=== PATIENT | female | born 1985 | race Caucasian/White ===

== ENCOUNTER 2016-11-12 11:59 | Emergency (ER) | payer BC ==
[~2016-11-12] VITALS: Ht 172.7 cm; Wt 62.8 kg
[~2016-11-12 11:59] MED LIST: ADDE20 PO; AUGM875T PO
[2016-11-12 12:03] VITALS: BP 115/80; PULSE 113; RESP 16; TEMP 99; O2SAT 100
--- NOTE | 2016-11-12 12:39 | PD ---
HPI Chief Complaint: Abdominal Pain Time Seen by Provider: 12:34 Travel History International Travel<30 days: No Contact w/Intl Traveler<30days: No Traveled to known affect area: No History of Present Illness HPI Patient presents with acute abdominal pain in the right lower quadrant since last night. Pain is 8 out of 10. Described as dull and constant. Last menses [address] ago[address]UD [address]. Denies any vaginal discharge. Denies any changes in her urine or bowels. Denies any nausea or vomiting. Denies . Denies any blood per stool. No history of abdominal surgeries. PFSH Past Medical History Hx Anticoagulant Therapy: No ADD: Yes ADHD: Yes Diabetes: No Diminished Hearing: No Immunizations Current: Yes Migraines: Yes (SINUS MIGRAINE, HAD MEDICAL BOTOX MAY 2013) ?: Not : 2 Para: 2 Past Surgical History Gynecologic Surgery: Yes (IUD) Other Surgery: Yes (HERNIA REPAIR, bilateral breast augmentation x 2) Social History Alcohol Use: No Tobacco Use: No Substance Use: No Allergies-Medications (Allergen,Severity, Reaction): Coded Allergies: Shellfish (Verified Allergy, Severe, 11/12/16) PEANUTS (Verified Allergy, Intermediate, 11/12/16) Uncoded Allergies: fish (Allergy, Severe, swelling, 05/10/15) Reported Meds & Prescriptions Reported Meds & Active Scripts Active Reported Adderall (Amphetamine-Dextroamphetamine) 20 Mg Tab 20 Mg PO DAILY Avoid late evening doses. Space doses at least 4 to 6 hours if more than once/day dosing. Review of Systems General / Constitutional: No: Fever Eyes: No: Visual changes HENT: No: Headaches Cardiovascular: No: Chest Pain or Discomfort Respiratory: No: Shortness of Breath Gastrointestinal: Positive: Abdominal Pain Genitourinary: No: Dysuria Musculoskeletal: No: Pain Skin: No Rash Neurologic: No: Weakness Psychiatric: No: Depression Endocrine: No: Polydipsia Hematologic/Lymphatic: No: Easy Bruising Physical Exam Narrative GENERAL: Well-nourished, well-developed patient. SKIN: Focused skin assessment warm/dry. HEAD: Normocephalic. EYES: No scleral icterus. No injection or drainage. NECK: Supple, trachea midline. No JVD or lymphadenopathy. CARDIOVASCULAR: Regular rate and rhythm without murmurs, gallops, or rubs. RESPIRATORY: Breath sounds equal bilaterally. No accessory muscle use. GASTROINTESTINAL: Abdomen soft, tender right lower quadrant to palpation, no rebound tenderness, nondistended. MUSCULOSKELETAL: No cyanosis, or edema. BACK: Nontender without obvious deformity. No CVA tenderness. Data Data Last Documented VS Vital Signs Date Time Temp Pulse Resp B/P Pulse Ox O2 Delivery O2 Flow Rate FiO2 11/12/16 13:28 99 Room Air 11/12/16 12:03 99.0 113 16 115/80 Orders Complete Blood Count With Diff (11/12/16 12:34) Comprehensive Metabolic Panel (11/12/16 12:34) Lipase (11/12/16 12:34) Lactic Acid (11/12/16 12:34) Prothrombin Time / Inr (Pt) (11/12/16 12:34) Urinalysis - C+S If Indicated (11/12/16 12:34) Ct Abd/Pel W Iv Contrast(Rout) (11/12/16 12:34) Iv Access Insert/Monitor (11/12/16 12:34) Ecg Monitoring (11/12/16 12:34) Oximetry (11/12/16 12:34) Sodium Chloride 0.9% Flush (Ns Flush) (11/12/16 12:45) Dicyclomine Inj (Bentyl Inj) (11/12/16 12:45) Ed Urine Pregnancytest Poc (11/12/16 12:34) Iohexol 350 Inj (Omnipaque 350 Inj) (11/12/16 13:18) Labs Laboratory Tests Test 11/12/16 11/12/16 12:52 13:00 White Blood Count 12.3 TH/MM3 Red Blood Count 4.08 MIL/MM3 Hemoglobin 12.5 GM/DL Hematocrit 37.0 % Mean Corpuscular Volume 90.7 FL Mean Corpuscular Hemoglobin 30.6 PG Mean Corpuscular Hemoglobin 33.8 % Concent Red Cell Distribution Width 12.0 % Platelet Count 214 TH/MM3 Mean Platelet Volume 7.8 FL Neutrophils (%) (Auto) 84.8 % Lymphocytes (%) (Auto) 5.5 % Monocytes (%) (Auto) 6.4 % Eosinophils (%) (Auto) 0.2 % Basophils (%) (Auto) 3.1 % Neutrophils # (Auto) 10.4 TH/MM3 Lymphocytes # (Auto) 0.7 TH/MM3 Monocytes # (Auto) 0.8 TH/MM3 Eosinophils # (Auto) 0.0 TH/MM3 Basophils # (Auto) 0.4 TH/MM3 CBC Comment DIFF FINAL Differential Comment Prothrombin Time 11.7 SEC Prothromb Time International 1.1 RATIO Ratio Sodium Level 139 MEQ/L Potassium Level 4.9 MEQ/L Chloride Level 104 MEQ/L Carbon Dioxide Level 24.7 MEQ/L Anion Gap 10 MEQ/L Blood Urea Nitrogen 9 MG/DL Creatinine 0.86 MG/DL Estimat Glomerular Filtration 76 ML/MIN Rate Random Glucose 86 MG/DL Lactic Acid Level 0.8 mmol/L Calcium Level 8.7 MG/DL Total Bilirubin 0.3 MG/DL Aspartate Amino Transf 29 U/L (AST/SGOT) Alanine Aminotransferase 17 U/L (ALT/SGPT) Alkaline Phosphatase 70 U/L Total Protein 8.1 GM/DL Albumin 3.6 GM/DL Lipase 105 U/L Urine Collection Type CLEAN CATCH Urine Color YELLOW Urine Turbidity CLEAR Urine pH 5.5 Urine Specific [place] 1.028 Urine Protein TRACE mg/dL Urine Glucose (UA) NEG mg/dL Urine Ketones NEG mg/dL Urine Occult Blood SMALL Urine Nitrite NEG Urine Bilirubin NEG Urine Leukocyte Esterase NEG Urine RBC 20-24 /hpf Urine WBC 0-2 /hpf Urine Squamous Epithelial > 8 /hpf Cells Urine Bacteria FEW /hpf Microscopic Urinalysis Comment CULT NOT INDICATED Urine Collection Time 1300 MDM Medical Decision Making Medical Screen Exam Complete: Yes Emergency Medical Condition: Yes Differential Diagnosis Appendicitis, colitis, UTI, ovarian cyst, viral enteritis Narrative Course Assessment and plan discussed with patient at bedside. Last 72 hours Impressions Abdomen/Pelvis CT 11/12/16 1234 Signed Impressions: Service Date/Time: Saturday, November 12, 2016 13:07 - CONCLUSION: Essentially unremarkable study. Angela Salas MD Patient resting comfortably reports improvement in her pain. Differential discussed with patient Diagnosis Primary Impression: Abdominal pain Qualified Code: R10.31 - Right lower quadrant abdominal pain Patient Instructions: General Instructions Additional Instructions: Encouraged a bland BRAT diet. Rest fluids and Motrin. Follow-up with PCP symptoms do not improve. Med/Other Pt SpecificInfo: Prescription(s) given Scripts Hydrocodone-Acetaminophen 5-325 mg Tab1 Tab PO Q4H PRN (PAIN) #20 TAB Ref 0 Prov:Gage,Rui R. MD 11/12/16 Disposition: 01 DISCHARGE HOME Condition: Good Rui Almonte MD Nov 12, 2016 12:39
[2016-11-12] MEDS ORDERED: DICYCLOMINE HCL 20 MG/2 ML VIAL IM ONE (12:45)
[2016-11-12] MEDS ORDERED: SODIUM CHLORIDE 0.9% FLUSH 10 ML FLUSH IV FLUSH PRN (12:45)
[2016-11-12 13:01] LABS: AUTOMATED NEUTROPHIL # 10.4 TH/MM3 (1.8-7.7); BASOPHIL # 0.4 TH/MM3 (0-0.2); BASOPHIL % 3.1 % (0.0-2.0); EOSINOPHIL % 0.2 % (0.0-4.0); LYMPH % 5.5 % (9.0-44.0); LYMPHOCYTE # 0.7 TH/MM3 (1.0-4.8); MEAN CELL VOLUME 90.7 FL (80.0-100.0); MEAN CORPUSCULAR HEMOGLOBIN 30.6 PG (27.0-34.0); MEAN CORPUSCULAR HGB CONC 33.8 % (32.0-36.0); MONO % 6.4 % (0.0-8.0); NEUT % 84.8 % (16.0-70.0); PLATELET COUNT 214 TH/MM3 (150-450); RED BLOOD COUNT 4.08 MIL/MM3 (4.00-5.30); WHITE BLOOD COUNT 12.3 TH/MM3 (4.0-11.0)
[2016-11-12 13:06] LABS: HEMO FLAGS DIFF FINAL
[2016-11-12 13:07] LABS: BLOOD, URINE SMALL (NEG); GLUCOSE,URINE NEG (NEG); KETONE, URINE NEG (NEG); NITRITE,URINE NEG (NEG); PH, URINE 5.5 (5.0-8.5)
[2016-11-12 13:11] LABS: CHLORIDE 104 MEQ/L (98-107); SODIUM (NA) 139 MEQ/L (136-145)
[2016-11-12 13:12] LABS: METHOD OF COLLECTION CLEAN CATCH; URINE COLOR YELLOW (YELLW/STRAW)
[2016-11-12 13:13] LABS: INTERNATIONAL NORMALIZED RATIO 1.1 RATIO; PROTHROMBIN TIME - PATIENT 11.7 SEC (9.8-11.6)
[2016-11-12 13:15] LABS: ANION GAP 10 MEQ/L (5-15); BICARBONATE 24.7 MEQ/L (21.0-32.0); BLOOD UREA NITROGEN 9 MG/DL (7-18)
[2016-11-12 13:16] LABS: WBC, URINE 0-2 /hpf (0-5)
[2016-11-12 13:17] LABS: SQUAMOUS EPITHELIAL CELL URINE > 8 /hpf (0-5)
[2016-11-12 13:18] LABS: ALT (GPT) 17 U/L (10-53); AST (GOT) 29 U/L (15-37); GLOMERULAR FILTRATION RATE 76 ML/MIN (>89)
[2016-11-12 13:18] LABS: BACTERIA, URINE FEW /hpf; COMMENT (UR) CULT NOT INDICATED; CULTURE IF INDICATED CULT NOT INDICATED
[2016-11-12] MEDS ORDERED: IOHEXOL 350 MG/ML 10 ML VIAL (for RAD DIAG) IV ONE (13:18)
[2016-11-12 13:19] LABS: TOTAL BILIRUBIN ADULT 0.3 MG/DL (0.2-1.0)
[2016-11-12 13:21] LABS: ALKALINE PHOSPHATASE 70 U/L (45-117)
[2016-11-12 13:24] LABS: POTASSIUM 4.9 MEQ/L (3.5-5.1)
[2016-11-12 13:28] VITALS: O2SAT 99
--- NOTE | 2016-11-12 13:44 | RADHPO ---
EXAM DATE/TIME: 11/12/2016 13:07 [facility] COMPARISON: No previous studies available for comparison. INDICATIONS : Right lower quadrant pain since last night. IV CONTRAST: 90 cc Omnipaque 350 (iohexol) IV ORAL CONTRAST: No oral contrast ingested. RADIATION DOSE: 6.64 CTDIvol (mGy) MEDICAL HISTORY : None SURGICAL HISTORY : Hernia repair. ENCOUNTER: Initial ACUITY: 2 days PAIN SCALE: 8/10 LOCATION: Right lower quadrant TECHNIQUE: Volumetric scanning of the abdomen and pelvis was performed. Using automated exposure control and ad justment of the mA and/or kV according to patient size, radiation dose was kept as low as reasonably achievable to obtain optimal diagnostic quality images. FINDINGS: CT Abdomen: The liver, spleen, pancreas, kidneys, adrenals are unremarkable. There is no evidence for any appreciable pathological adenopathy, free fluid, or bowel obstruction. CT pelvis: There is no evidence for mass, abscess formation, or any significant adenopathy within the pelvis. The appendix is not clearly visualized, however no definite signs of appendicitis is seen. I UD is in place. CONCLUSION: Essentially unremarkable study. Angela Salas MD on November 12, 2016 at 13:34 Board Certified Radiologist. This report was verified electronically.
[2016-11-12] MEDS ORDERED: HYDR-3516 PO (13:57)
== END 2016-11-12 14:11 | disposition home or self-care (01) ==
LOC: PHED 11:59
DX: R10.31 Right lower quadrant pain (principal)
CPT/HCPCS: 74177; 80053; 81001; 83605; 83690; 84703; 85025; 85610; 96372; 99284; J0500; Q9967

== ENCOUNTER 2016-11-14 13:18 | Inpatient (IN) | payer BC ==
[~2016-11-14] VITALS: Ht 172.7 cm; Wt 64.1 kg
[2016-11-14] VITALS (16 sets, daily range): BP systolic 86–108; BP diastolic 55–75; PULSE 80–130; RESP 13–26; TEMP 98–102.9; O2SAT 95–100
[~2016-11-14 13:18] MED LIST changes: -AUGM875T PO; +HYDR-3516 PO
[2016-11-14] MEDS ORDERED: BUPR100CR PO (14:48)
[2016-11-14] MEDS ORDERED: AMBI5TAB PO (14:48)
[2016-11-14 14:55] LABS: HEMATOCRIT 39.6 % (35.0-46.0); MEAN CELL VOLUME 90.7 FL (80.0-100.0); MEAN CORPUSCULAR HEMOGLOBIN 30.6 PG (27.0-34.0); MEAN CORPUSCULAR HGB CONC 33.8 % (32.0-36.0); PLATELET COUNT 205 TH/MM3 (150-450); RED BLOOD COUNT 4.37 MIL/MM3 (4.00-5.30); WHITE BLOOD COUNT 6.3 TH/MM3 (4.0-11.0)
[2016-11-14] MEDS ORDERED: VANCOMYCIN INJ 900 MG in SODIUM CHLOR 0.9% 250 ML INJ 250 ML IV ONE (15:00)
[2016-11-14] MEDS ORDERED: SODIUM CHLOR 0.9% 1000 ML INJ 1,000 ML IV ONE ×4 (15:00→18:30)
[2016-11-14] MEDS ORDERED: PIPERACIL-TAZO 3.375 GM PREMIX 50 ML IV ONE (15:00)
--- NOTE | 2016-11-14 15:05 | PD ---
HPI Chief Complaint: Abdominal Pain Time Seen by Provider: 14:47 Travel History International Travel<30 days: No Contact w/Intl Traveler<30days: No Traveled to known affect area: No History of Present Illness HPI Patient is a 31-year-old female who returns to emergency room for evaluation of fevers, chills, nausea, vomiting, diarrhea since Sunday. Reports that on Sunday , she began to have right lower quadrant abdominal pain. Patient was seen in the emergency room and had a CT of abdomen and pelvis, reports that she was told that she had ovarian cyst to follow-up with her [facility]. She was told to return to the emergency room should she have return of symptoms. Patient reports that since she left the emergency room, she has been feeling worse. Patient reports that she has increased pains to her lower abdomen, reports increased nausea, vomiting and diarrhea. Patient reports that her temperature runs about 101.7, she has been taking Motrin for her fevers. Patient reports that she feels worse today than on Sunday and has increased pain to her right lower quadrant. Patient denies any vaginal discharge or bleeding. She reports that she is sexually active and has not been sexually active in a long time, denies history of PID or std's in the past. Denies cough or congestion, denies dysuria, urinary urgency or frequency. PFSH Past Medical History Hx Anticoagulant Therapy: No ADD: Yes ADHD: Yes Diabetes: No Diminished Hearing: No Medical other: Yes (OVARIAN CYSTS) Immunizations Current: Yes Migraines: Yes (SINUS MIGRAINE, HAD MEDICAL BOTOX JANUARY/MAY 2013) Tetanus Vaccination: < 5 Years Influenza Vaccination: Yes ?: Not : 2 Para: 2 Past Surgical History Gynecologic Surgery: Yes (IUD) Other Surgery: Yes (HERNIA REPAIR, bilateral breast augmentation x 2) Social History Alcohol Use: No Tobacco Use: No Substance Use: No Allergies-Medications (Allergen,Severity, Reaction): Coded Allergies: Shellfish (Verified Allergy, Severe, 11/14/16) PEANUTS (Verified Allergy, Intermediate, 11/14/16) Uncoded Allergies: fish (Allergy, Severe, swelling, 05/10/15) Reported Meds & Prescriptions Reported Meds & Active Scripts Active Hydrocodone-Acetaminophen 5-325 mg Tab 1 Tab PO Q4H PRN Reported Ambien (Zolpidem Tartrate) 5 Mg Tab Unknown Dose PO HS PRN Wellbutrin SR 12 HR (Bupropion HCl) 100 Mg Tab Unknown Dose PO DIRECTED Adderall (Amphetamine-Dextroamphetamine) 20 Mg Tab 20 Mg PO DAILY Avoid late evening doses. Space doses at least 4 to 6 hours if more than once/day dosing. Review of Systems General / Constitutional: Positive: Fever, Chills Eyes: No: Visual changes HENT: No: Headaches Cardiovascular: No: Chest Pain or Discomfort Respiratory: No: Cough, Shortness of Breath Gastrointestinal: Positive: Nausea, Vomiting, Diarrhea, Abdominal Pain Genitourinary: No: Dysuria Musculoskeletal: No: Pain Skin: No Rash Neurologic: No: Weakness Psychiatric: No: Depression Endocrine: No: Polydipsia Hematologic/Lymphatic: No: Easy Bruising Physical Exam Narrative GENERAL: Moderate distress SKIN: Focused skin assessment warm/dry. HEAD: Atraumatic. Normocephalic. EYES: Pupils equal and round. No scleral icterus. No injection or drainage. ENT: No nasal bleeding or discharge. Mucous membranes pink and moist. NECK: Trachea midline. No JVD. CARDIOVASCULAR: Regular rate and rhythm. No murmur appreciated. RESPIRATORY: No accessory muscle use. Clear to auscultation. Breath sounds equal bilaterally. GASTROINTESTINAL: Abdomen soft, tenderness to right lower quadrant with guarding on exam. Pelvic exam: exam performed with RN at bedside, no discharge, no cmt or adnexal tenderness MUSCULOSKELETAL: No obvious deformities. No clubbing. No cyanosis. No edema. NEUROLOGICAL: Awake and alert. No obvious cranial nerve deficits. Motor grossly within normal limits. Normal speech. PSYCHIATRIC: Appropriate mood and affect; insight and judgment normal. Data Data Last Documented VS Vital Signs Date Time Temp Pulse Resp B/P Pulse Ox O2 Delivery O2 Flow Rate FiO2 11/14/16 19:00 98.3 99 20 93/60 100 Room Air Orders Complete Blood Count With Diff (11/14/16 14:39) Comprehensive Metabolic Panel (11/14/16 14:39) Urinalysis - C+S If Indicated (11/14/16 14:39) Lactic Acid Sepsis Protocol (11/14/16 14:39) Blood Culture (11/14/16 14:39) Iv Access Insert/Monitor (11/14/16 14:39) Oxygen Administration (11/14/16 14:39) Oximetry (11/14/16 14:39) Blood Glucose (11/14/16 14:39) Ed Urine Pregnancytest Poc (11/14/16 14:39) Sodium Chlor 0.9% 1000 Ml Inj (Ns 1000 M (11/14/16 15:00) Sodium Chlor 0.9% 1000 Ml Inj (Ns 1000 M (11/14/16 15:00) Ct Abd/Pel W Iv Contrast(Rout) (11/14/16 15:00) Influenzae A/B Antigen (11/14/16 15:00) Piperacil-Tazo 3.375 Gm Premix (Zosyn 3. (11/14/16 15:00) Vancomycin Inj (Vancomycin Inj) (11/14/16 15:00) Acetaminophen (Tylenol) (11/14/16 15:15) Chest, Single Ap (11/14/16 15:33) Gc And Chlamydia Pcr (11/14/16 15:48) Wet Prep Profile (11/14/16 15:48) Ibuprofen (Motrin) (11/14/16 16:15) Sodium Chlor 0.9% 1000 Ml Inj (Ns 1000 M (11/14/16 17:00) Iohexol 350 Inj (Omnipaque 350 Inj) (11/14/16 17:09) Urine Culture (11/14/16 16:35) Rotavirus Ag Detection (Stool) (11/14/16 18:12) Enteric Path (Stool) (11/14/16 18:12) C Diff Toxin Pcr (11/14/16 18:12) Stool Wbc (Leukocytes) (11/14/16 18:12) Metronidazole 500 Mg Inj (Flagyl 500 Mg (11/14/16 18:30) Potassium Chloride (Kcl) (11/14/16 18:30) Sodium Chlor 0.9% 1000 Ml Inj (Ns 1000 M (11/14/16 18:30) Vital Signs (Adult) Q4H (11/14/16 19:42) Activity Oob With Assistance (11/14/16 19:42) Change Control Analyst / Telemetry .CONTINUOUS (11/14/16 19:42) Diet Clear Liquid (11/15/16 Breakfast) Sodium Chlor 0.9% 1000 Ml Inj (Ns 1000 M (11/14/16 19:42) Sodium Chloride 0.9% Flush (Ns Flush) (11/14/16 19:45) Sodium Chloride 0.9% Flush (Ns Flush) (11/14/16 21:00) Ondansetron Inj (Zofran Inj) (11/14/16 19:45) Metoclopramide Inj (Reglan Inj) (11/14/16 19:45) Comprehensive Metabolic Panel (11/15/16 06:00) Complete Blood Count With Diff (11/15/16 06:00) Naloxone Inj (Narcan Inj) (11/14/16 19:45) Ciprofloxacin 400 Mg Premix (Cipro 400 M (11/14/16 23:00) Admit Order (Ed Use Only) (11/14/16 ) Metronidazole 500 Mg Inj (Flagyl 500 Mg (11/15/16 00:00) Labs Laboratory Tests Test 11/14/16 11/14/16 11/14/16 11/14/16 14:39 16:00 16:35 18:20 White Blood Count 6.3 TH/MM3 Red Blood Count 4.37 MIL/MM3 Hemoglobin 13.4 GM/DL Hematocrit 39.6 % Mean Corpuscular Volume 90.7 FL Mean Corpuscular Hemoglobin 30.6 PG Mean Corpuscular Hemoglobin 33.8 % Concent Red Cell Distribution Width 12.0 % Platelet Count 205 TH/MM3 Mean Platelet Volume 7.8 FL Neutrophils (%) (Auto) % Lymphocytes (%) (Auto) % Monocytes (%) (Auto) % Eosinophils (%) (Auto) % Basophils (%) (Auto) % Neutrophils # (Auto) TH/MM3 Lymphocytes # (Auto) TH/MM3 Monocytes # (Auto) TH/MM3 Eosinophils # (Auto) TH/MM3 Basophils # (Auto) TH/MM3 CBC Comment AUTO DIFF Differential Total Cells 100 Counted Neutrophils % (Manual) 18 % Band Neutrophils % 7 % Lymphocytes % 64 % Monocytes % 11 % Neutrophils # (Manual) 1.6 TH/MM3 Differential Comment FINAL DIFF MANUAL Atypical Lymphocytes % Platelet Estimate NORMAL Platelet Morphology Comment NORMAL Red Cell Morphology Comment NORMAL Sodium Level 133 MEQ/L Potassium Level 3.5 MEQ/L Chloride Level 99 MEQ/L Carbon Dioxide Level 23.2 MEQ/L Anion Gap 11 MEQ/L Blood Urea Nitrogen 8 MG/DL Creatinine 0.91 MG/DL Estimat Glomerular Filtration 72 ML/MIN Rate Random Glucose 100 MG/DL Lactic Acid Level 1.3 mmol/L Calcium Level 8.6 MG/DL Total Bilirubin 0.3 MG/DL Aspartate Amino Transf 16 U/L (AST/SGOT) Alanine Aminotransferase 19 U/L (ALT/SGPT) Alkaline Phosphatase 83 U/L Total Protein 7.4 GM/DL Albumin 3.0 GM/DL Clue Cells (Wet Prep) PRESENT Vaginal Trichomonas (Wet Prep) NONE SEEN Vaginal Yeast (Wet Prep) NONE SEEN Chlamydia trachomatis DNA NOT DETECTED (PCR) Neisseria gonorrhoeae DNA NOT DETECTED (PCR) Urine Color YELLOW Urine Turbidity CLEAR Urine pH 6.0 Urine Specific [place] 1.023 Urine Protein TRACE mg/dL Urine Glucose (UA) NEG mg/dL Urine Ketones 15 mg/dL Urine Occult Blood MOD Urine Nitrite NEG Urine Bilirubin NEG Urine Leukocyte Esterase TRACE Urine WBC 9-14 /hpf Urine Squamous Epithelial > 8 /hpf Cells Urine Bacteria FEW /hpf Microscopic Urinalysis Comment CULTURE INDICATED Stool C. difficile Toxin (PCR) NEGATIVE Stl C. difficile Toxin PRESUMPTIVE Epiderm 027 NEGATIVE MDM Medical Decision Making Medical Screen Exam Complete: Yes Emergency Medical Condition: Yes Differential Diagnosis Appendicitis, colitis, PID, UTI, gastroenteritis Narrative Course 31-year-old female who presents to emergency room with complaints of abdominal pain since Sunday. Patient was seen and evaluated sending the emergency room and had a CT of her abdomen and pelvis are all appendicitis. Patient reports that she has had persistent pain to her right lower quadrant, reports nausea vomiting diarrhea and high fevers. Patient tachycardic and febrile emergency room, sepsis protocol initiated. The patient has diffuse pain to the lower abdomen, plan to obtain labs, blood cultures, obtain CT of the abdomen and pelvis to rule out appendicitis versus colitis versus gastroenteritis. [facility] Nov 14, 2016 15:05
[2016-11-14] MEDS ORDERED: ACETAMINOPHEN 325 MG TAB PO ONE (15:15)
[2016-11-14 15:20] LABS: ALKALINE PHOSPHATASE 83 U/L (45-117); ALT (GPT) 19 U/L (10-53); ANION GAP 11 MEQ/L (5-15); AST (GOT) 16 U/L (15-37); BICARBONATE 23.2 MEQ/L (21.0-32.0); BLOOD UREA NITROGEN 8 MG/DL (7-18); CHLORIDE 99 MEQ/L (98-107); GLOMERULAR FILTRATION RATE 72 ML/MIN (>89); POTASSIUM 3.5 MEQ/L (3.5-5.1); SODIUM (NA) 133 MEQ/L (136-145); TOTAL BILIRUBIN ADULT 0.3 MG/DL (0.2-1.0)
[2016-11-14 15:22] LABS: HEMO FLAGS AUTO DIFF
[2016-11-14 16:01] LABS: BANDS 7 % (0-6); NEUTROPHIL # MANUAL DIFF 1.6 TH/MM3 (1.8-7.7); PLATELET ESTIMATE SMEAR NORMAL (NORMAL); PLATELET MORPHOLOGY NORMAL (NORMAL); POLYS (SEG NEUTROPHILS) 18 % (16-70); SCAN/DIFF FINAL DIFF MANUAL; WBC DIFF SAMPLE 100
--- NOTE | 2016-11-14 16:13 | RADHPO ---
EXAM DATE/TIME: 11/14/2016 15:35 [facility] COMPARISON: No previous studies available for comparison. INDICATIONS : Fever. MEDICAL HISTORY : None. SURGICAL HISTORY : None. ENCOUNTER: Initial ACUITY: 2 days PAIN SCORE: 0/10 LOCATION: Bilateral chest FINDINGS: A single view of the chest demonstrates the lungs to be symmetrically aerated without evidence of mas s, infiltrate or effusion. The cardiomediastinal contours are unremarkable. Osseous structures are intact. CONCLUSION: No acute disease. Gigi Brownlee MD on November 14, 2016 at 16:11 Board Certified Radiologist. This report was verified electronically.
[2016-11-14] MEDS ORDERED: IBUPROFEN 600 MG TAB PO ONE (16:15)
[2016-11-14 16:51] LABS: GLUCOSE,URINE NEG (NEG); KETONE, URINE 15 mg/dL (NEG); NITRITE,URINE NEG (NEG)
[2016-11-14 17:01] LABS: BLOOD, URINE MOD (NEG)
[2016-11-14 17:07] LABS: URINE COLOR YELLOW (YELLW/STRAW)
[2016-11-14 17:08] LABS: BACTERIA, URINE FEW /hpf; SQUAMOUS EPITHELIAL CELL URINE > 8 /hpf (0-5)
[2016-11-14 17:09] LABS: COMMENT (UR) CULTURE INDICATED; CULTURE IF INDICATED CULTURE INDICATED
[2016-11-14] MEDS ORDERED: IOHEXOL 350 MG/ML 10 ML VIAL (for RAD DIAG) IV ONE (17:09)
--- NOTE | 2016-11-14 17:09 | PD ---
Physical Exam Date Seen by Provider: Nov 14, 2016 Time Seen by Provider: 17:07 Narrative This 31-year-old female is complaining of fever and right lower quadrant pain. She has been sick since Sunday. On Sunday she came here and was evaluated for right lower quadrant pain. She had a CT scan which was read as negative. She was released with pain medication. She says that since going home she has had fairly system pain. She's been having large amount of diarrhea. She's had sporadic vomiting. Her temperature is been no sinus 103. She has no history of abdominal surgery. She does have an IUD in place. Dr. Alcantara has done a pelvic exam and did not find evidence of pelvic infection. Her white count today is 6000 compared to 12,000 and the other day. Data Data Last Documented VS Vital Signs Date Time Temp Pulse Resp B/P Pulse Ox O2 Delivery O2 Flow Rate FiO2 11/14/16 18:15 98.0 96 14 93/63 99 Room Air Orders Complete Blood Count With Diff (11/14/16 14:39) Comprehensive Metabolic Panel (11/14/16 14:39) Urinalysis - C+S If Indicated (11/14/16 14:39) Lactic Acid Sepsis Protocol (11/14/16 14:39) Blood Culture (11/14/16 14:39) Iv Access Insert/Monitor (11/14/16 14:39) Oxygen Administration (11/14/16 14:39) Oximetry (11/14/16 14:39) Blood Glucose (11/14/16 14:39) Ed Urine Pregnancytest Poc (11/14/16 14:39) Sodium Chlor 0.9% 1000 Ml Inj (Ns 1000 M (11/14/16 15:00) Sodium Chlor 0.9% 1000 Ml Inj (Ns 1000 M (11/14/16 15:00) Ct Abd/Pel W Iv Contrast(Rout) (11/14/16 15:00) Influenzae A/B Antigen (11/14/16 15:00) Piperacil-Tazo 3.375 Gm Premix (Zosyn 3. (11/14/16 15:00) Vancomycin Inj (Vancomycin Inj) (11/14/16 15:00) Acetaminophen (Tylenol) (11/14/16 15:15) Chest, Single Ap (11/14/16 15:33) Gc And Chlamydia Pcr (11/14/16 15:48) Wet Prep Profile (11/14/16 15:48) Ibuprofen (Motrin) (11/14/16 16:15) Sodium Chlor 0.9% 1000 Ml Inj (Ns 1000 M (11/14/16 17:00) Iohexol 350 Inj (Omnipaque 350 Inj) (11/14/16 17:09) Urine Culture (11/14/16 16:35) Rotavirus Ag Detection (Stool) (11/14/16 18:12) Enteric Path (Stool) (11/14/16 18:12) C Diff Toxin Pcr (11/14/16 18:12) Stool Wbc (Leukocytes) (11/14/16 18:12) Metronidazole 500 Mg Inj (Flagyl 500 Mg (11/14/16 18:30) Potassium Chloride (Kcl) (11/14/16 18:30) Sodium Chlor 0.9% 1000 Ml Inj (Ns 1000 M (11/14/16 18:30) Labs Laboratory Tests Test 11/14/16 11/14/16 11/14/16 14:39 16:00 16:35 White Blood Count 6.3 TH/MM3 Red Blood Count 4.37 MIL/MM3 Hemoglobin 13.4 GM/DL Hematocrit 39.6 % Mean Corpuscular Volume 90.7 FL Mean Corpuscular Hemoglobin 30.6 PG Mean Corpuscular Hemoglobin 33.8 % Concent Red Cell Distribution Width 12.0 % Platelet Count 205 TH/MM3 Mean Platelet Volume 7.8 FL Neutrophils (%) (Auto) % Lymphocytes (%) (Auto) % Monocytes (%) (Auto) % Eosinophils (%) (Auto) % Basophils (%) (Auto) % Neutrophils # (Auto) TH/MM3 Lymphocytes # (Auto) TH/MM3 Monocytes # (Auto) TH/MM3 Eosinophils # (Auto) TH/MM3 Basophils # (Auto) TH/MM3 CBC Comment AUTO DIFF Differential Total Cells 100 Counted Neutrophils % (Manual) 18 % Band Neutrophils % 7 % Lymphocytes % 64 % Monocytes % 11 % Neutrophils # (Manual) 1.6 TH/MM3 Differential Comment FINAL DIFF MANUAL Atypical Lymphocytes % Platelet Estimate NORMAL Platelet Morphology Comment NORMAL Red Cell Morphology Comment NORMAL Sodium Level 133 MEQ/L Potassium Level 3.5 MEQ/L Chloride Level 99 MEQ/L Carbon Dioxide Level 23.2 MEQ/L Anion Gap 11 MEQ/L Blood Urea Nitrogen 8 MG/DL Creatinine 0.91 MG/DL Estimat Glomerular Filtration 72 ML/MIN Rate Random Glucose 100 MG/DL Lactic Acid Level 1.3 mmol/L Calcium Level 8.6 MG/DL Total Bilirubin 0.3 MG/DL Aspartate Amino Transf 16 U/L (AST/SGOT) Alanine Aminotransferase 19 U/L (ALT/SGPT) Alkaline Phosphatase 83 U/L Total Protein 7.4 GM/DL Albumin 3.0 GM/DL Clue Cells (Wet Prep) PRESENT Vaginal Trichomonas (Wet Prep) NONE SEEN Vaginal Yeast (Wet Prep) NONE SEEN Chlamydia trachomatis DNA NOT DETECTED (PCR) Neisseria gonorrhoeae DNA NOT DETECTED (PCR) Urine Color YELLOW Urine Turbidity CLEAR Urine pH 6.0 Urine Specific [place] 1.023 Urine Protein TRACE mg/dL Urine Glucose (UA) NEG mg/dL Urine Ketones 15 mg/dL Urine Occult Blood MOD Urine Nitrite NEG Urine Bilirubin NEG Urine Leukocyte Esterase TRACE Urine WBC 9-14 /hpf Urine Squamous Epithelial > 8 /hpf Cells Urine Bacteria FEW /hpf Microscopic Urinalysis Comment CULTURE INDICATED MDM Medical Record Reviewed: Yes Supervised Visit with DANIEL: Yes Differential Diagnosis Differential includes appendicitis, colitis ovarian cyst Narrative Course CT scan today is suggestive of colitis. Patient has received aggressive fluid treatment. Her blood pressure was low but is come up with fluids. Diagnosis Primary Impression: Colitis Additional Impression: Dehydration Admitting Information Admitting Physician Requests: Admit Curt Blue MD Nov 14, 2016 17:09
--- NOTE | 2016-11-14 17:41 | RADHPO ---
EXAM DATE/TIME: 11/14/2016 16:58 [place] COMPARISON: CT ABDOMEN & PELVIS W CONTRAST, November 12, 2016, 13:07. INDICATIONS : Worsening right lower quadrant pain for three days with fever. IV CONTRAST: 90 cc Omnipaque 350 (iohexol) IV ORAL CONTRAST: No oral contrast ingested. RADIATION DOSE: 8.77 CTDIvol (mGy) MEDICAL HISTORY : Hernia. SURGICAL HISTORY : None. ENCOUNTER: Sequela ACUITY: 3 days PAIN SCALE: 10/10 LOCATION: Right lower quadrant TECHNIQUE: Volumetric scanning of the abdomen and pelvis was performed. Using automated exposure control and ad justment of the mA and/or kV according to patient size, radiation dose was kept as low as reasonably achievable to obtain optimal diagnostic quality images. FINDINGS: LOWER LUNGS: The visualized lower lungs are clear. LIVER: Homogeneous density without lesion. There is no dilation of the biliary tree. No calcified gallston es. SPLEEN: Normal size without lesion. PANCREAS: Within normal limits. KIDNEYS: Normal in size and shape. There is no mass, stone or hydronephrosis. ADRENAL GLANDS: Within normal limits. VASCULAR: There is no aortic aneurysm. BOWEL/MESENTERY: There is diffuse and concentric thickening of the wall of the entire right colon from cecum to the he patic flexure. There is also some free fluid tracking in the right paracolic gutter. The appendix i s not identified with certainty. The left colon is normal in configuration. ABDOMINAL WALL: Within normal limits. RETROPERITONEUM: There is no lymphadenopathy. BLADDER: No wall thickening or mass. REPRODUCTIVE: T-shaped IUD in place. No evidence of free fluid in the cul-de-sac. INGUINAL: There is no lymphadenopathy or hernia. MUSCULOSKELETAL: Within normal limits for patient age. CONCLUSION: Abnormal appearance to the right colon with diffuse wall thickening and some free fluid the paracolic gutter. This suggests possible colitis. Henrique Batres MD on November 14, 2016 at 17:35 Board Certified Radiologist. This report was verified electronically.
[2016-11-14] MEDS ORDERED: POTASSIUM CHLORIDE 20 MEQ CONTROLLED RELEASE TAB PO ONE (18:30)
[2016-11-14] MEDS ORDERED: metroNIDAZOLE 500 MG INJ 100 ML IV ONE (18:30)
[2016-11-14 19:33] LABS: CHLAMYDIA PCR NOT DETECTED (NOT DETECT); NEISSERIA PCR NOT DETECTED (NOT DETECT)
[2016-11-14] MEDS ORDERED: ONDANSETRON HCL 4 MG/2 ML VIAL IVP PRN (19:45)
[2016-11-14] MEDS ORDERED: NALOXONE HCL 0.4 MG/ML AMP IV PRN (19:45)
[2016-11-14] MEDS ORDERED: METOCLOPRAMIDE HCL 10 MG/2 ML VIAL IV PUSH PRN (19:45)
[2016-11-14] MEDS ORDERED: SODIUM CHLORIDE 0.9% FLUSH 10 ML FLUSH IV FLUSH PRN (19:45)
[2016-11-14] MEDS ORDERED: ONDANSETRON HCL 4 MG/2 ML VIAL IV PUSH ONE (20:45)
[2016-11-14] MEDS ORDERED: MORPHINE SULFATE 8 MG/ML INJ IV PUSH ONE (20:45)
[2016-11-14] MEDS: SODIUM CHLOR 0.9% 1000 ML INJ 1,000 ML IV SCH ×2 (20:53→22:48)
[2016-11-14] MEDS: SODIUM CHLORIDE 0.9% FLUSH 10 ML FLUSH IV FLUSH SCH (21:00)
[2016-11-14 21:10] LABS: C. DIFF EPI 027 PRESUMPTIVE NEGATIVE (NEGATIVE); C. DIFF TOXIN PCR NEGATIVE (NEGATIVE)
[2016-11-14] MEDS ORDERED: CALCIUM CARBONATE 500 MG CHEWABLE TAB CHEW PRN (22:15)
[2016-11-14] MEDS ORDERED: ALUMINUM/MAGNESIUM/SIMETH 30 ML CUP PO PRN (22:15)
[2016-11-15] VITALS (15 sets, daily range): BP systolic 75–99; BP diastolic 48–68; PULSE 81–122; RESP 13–26; TEMP 97.8–102; O2SAT 91–99
[2016-11-15] MEDS: CIPROFLOXACIN 400 MG PREMIX 200 ML IV SCH ×3 (00:03→20:17)
[2016-11-15] MEDS: metroNIDAZOLE 500 MG INJ 100 ML IV SCH ×3 (00:16→12:00)
[2016-11-15] MEDS ORDERED: IBUPROFEN 400 MG TAB PO ONE (01:00)
[2016-11-15] MEDS ORDERED: HYDROCORTISONE SOD SUCCINATE 100 MG VIAL IV PUSH ONE (01:00)
[2016-11-15] MEDS ORDERED: SODIUM CHLOR 0.9% 1000 ML INJ 1,000 ML IV ONE (03:00)
[2016-11-15] MEDS: ACETAMINOPHEN 325 MG TAB PO PRN ×3 (03:08→17:36)
[2016-11-15 05:16] LABS: AUTOMATED NEUTROPHIL # 7.4 TH/MM3 (1.8-7.7); BASOPHIL % 0.1 % (0.0-2.0); EOSINOPHIL % 0.1 % (0.0-4.0); HEMATOCRIT 31.7 % (35.0-46.0); LYMPH % 5.3 % (9.0-44.0); LYMPHOCYTE # 0.5 TH/MM3 (1.0-4.8); MEAN CELL VOLUME 91.6 FL (80.0-100.0); MEAN CORPUSCULAR HEMOGLOBIN 30.6 PG (27.0-34.0); MEAN CORPUSCULAR HGB CONC 33.4 % (32.0-36.0); NEUT % 86.5 % (16.0-70.0); PLATELET COUNT 173 TH/MM3 (150-450); RED BLOOD COUNT 3.46 MIL/MM3 (4.00-5.30); RED CELL DISTRIBUTION WIDTH 12.9 % (11.6-17.2); WHITE BLOOD COUNT 8.6 TH/MM3 (4.0-11.0)
[2016-11-15 05:22] LABS: HEMO FLAGS AUTO DIFF
[2016-11-15] MEDS: HYDROCORTISONE SOD SUCCINATE 100 MG VIAL IV PUSH SCH ×3 (06:01→20:17)
[2016-11-15 06:26] LABS: BICARBONATE 19.4 MEQ/L (21.0-32.0); CALCIUM-PROTEIN CORRECTED 7.8 MG/DL (8.5-10.1); POTASSIUM 3.5 MEQ/L (3.5-5.1); TOTAL BILIRUBIN ADULT 0.3 MG/DL (0.2-1.0)
[2016-11-15 08:28] LABS: BANDS 36 % (0-6); METAMYELOCYTES 2 % (0-1); POLYS (SEG NEUTROPHILS) 43 % (16-70); WBC DIFF SAMPLE 100
[2016-11-15 08:29] LABS: PLATELET ESTIMATE SMEAR NORMAL (NORMAL); PLATELET MORPHOLOGY NORMAL (NORMAL); SCAN/DIFF FINAL DIFF MANUAL
[2016-11-15] MEDS: SODIUM CHLORIDE 0.9% FLUSH 10 ML FLUSH IV FLUSH SCH ×2 (11:16→20:17)
--- NOTE | 2016-11-15 11:18 | HHI.HP ---
[facility] Hui Alcantara DO Admission Diagnosis COLITIS, DEHYDRATION Diagnoses: (1) Septic shock Diagnosis: Principal (2) Colitis Diagnosis: Principal Chief Complaint: abdominal pain, diarrhea, fevers Travel History International Travel<30 Days: No Contact w/Intl Traveler <30 Da: No Traveled to Known Affected Are: No Sepsis Criteria SIRS Criteria (2 or more): Temp > 100.9 or < 96.8, Heart rate over 90 Sepsis Criteria (SIRS+source): Infect source susp/known Severe Sepsis (+one): Hypotension Septic Shock Criteria: Unresponsive to 30ml/kg fluid bolus Criteria Outcome: Meets septic shock criteria History of Present Illness 31-year-old female with only medical history of ovarian cyst, migraines, and ADD presents with complaint of abdominal pain. Patient states she went to the ED on Sunday with stomach pains and "a little" fever. Per EMR patient had presented to the ED on 11/12/16 with right lower quadrant abdominal pain. CT was found to be unremarkable, but patient did have a white blood cell count of 12.3 at that time. She was prescribed pain medication for home. On Sunday she developed excruciating abdominal pain, indicates over RLQ. She states she took hydrocodone which dulled it. She states she also had a fever which continued to get worse. She states on Sunday she had a temp of 103.7 and her temp had been 102 or greater all night and she decided to come back to the ED. The patient states last night she had some pain in her stomach but Tylenol helped. She denies any further nausea or vomiting. She admits to still having a little diarrhea but states it is much improved as it was occurring all of the time before. She states she had a fever yesterday evening but ibuprofen helped. Patient was found to be hypotensive and states she normally runs 115/90. She states she has not had any nausea or vomiting in the past 1.5 days and desires to eat. Denies being around any sick contacts. Patient does have an IUD, but denies any vaginal discharge. Review of Systems Except as stated in HPI: all other systems reviewed are Neg Past Family Social History Past Medical History ADD Ovarian cyst Migraines, currently controlled IUD present Past Surgical History Breast augmentation Reported Medications Adderall (Amphetamine-Dextroamphetamine) 20 Mg Tab 20 Mg PO DAILY Avoid late evening doses. Space doses at least 4 to 6 hours if more than once/day dosing. Allergies: Coded Allergies: Shellfish (Verified Allergy, Severe, 11/14/16) PEANUTS (Verified Allergy, Intermediate, 11/14/16) Uncoded Allergies: fish (Allergy, Severe, swelling, 05/10/15) Family History Patient states there is a strong history of colon cancer on her grandfather's side of the family. She states his 2 sisters of colon cancer, diagnosed at age 25 and 28. Breast cancer. Heart disease. Social History Patient denies alcohol use, cigarette smoking, or illicit drug use. Physical Exam Vital Signs Vital Signs Date Time Temp Pulse Resp B/P Pulse Ox O2 Delivery O2 Flow Rate FiO2 11/15/16 06:07 93 11/15/16 04:06 100 11/15/16 04:00 100 14 80/57 11/15/16 02:24 110 19 77/57 11/15/16 02:23 112 24 75/48 11/15/16 02:00 99.9 116 20 91 11/15/16 02:00 116 11/15/16 00:02 122 23 85/54 11/15/16 00:00 122 11/15/16 00:00 102.0 122 17 88/58 99 11/14/16 23:00 126 26 99/64 11/14/16 22:25 98 Nasal Cannula 2.00 11/14/16 22:22 100.0 122 13 107/67 98 11/14/16 22:20 124 11/14/16 22:00 98.3 118 20 108/75 98 Nasal Cannula 2 11/14/16 21:30 118 20 106/72 11/14/16 21:00 80 20 97/60 96 Nasal Cannula 2 11/14/16 20:39 104 20 96/57 96 Nasal Cannula 2 11/14/16 20:05 20 11/14/16 20:00 98.0 104 24 86/57 95 Nasal Cannula 2 11/14/16 19:00 98.3 99 20 93/60 100 Room Air 11/14/16 18:15 98.0 96 14 93/63 99 Room Air 11/14/16 16:40 101.9 102 14 88/57 100 11/14/16 16:05 102.9 119 16 98/55 98 Room Air 11/14/16 14:46 98 Room Air 11/14/16 14:46 98 Room Air 11/14/16 14:40 102.8 128 18 108/75 98 Room Air 11/14/16 13:25 102.8 130 16 108/75 96 Physical Exam BP 90/62 (MAP 74) at time of exam. GENERAL: This is a well-nourished, well-developed patient, in no apparent distress. SKIN: No rashes, ecchymoses or lesions. Warm and dry. HEAD: Atraumatic. Normocephalic. EYES: No scleral icterus. No injection or drainage. NECK: Trachea midline. CARDIOVASCULAR: Regular rate and rhythm without murmurs, gallops, or rubs. RESPIRATORY: Clear to auscultation. Breath sounds equal bilaterally. No wheezes , rales, or rhonchi. GASTROINTESTINAL: Normoactive bowel sounds. Abdomen soft, nondistended. Tender over the RLQ, but no guarding. MUSCULOSKELETAL: No lower extremity edema bilaterally. NEUROLOGICAL: Awake and alert. Motor grossly within normal limits. Normal speech. Laboratory Laboratory Tests Test 11/14/16 11/14/16 11/14/16 11/14/16 14:39 16:00 16:35 18:20 White Blood Count 6.3 Red Blood Count 4.37 Hemoglobin 13.4 Hematocrit 39.6 Mean Corpuscular Volume 90.7 Mean Corpuscular Hemoglobin 30.6 Mean Corpuscular Hemoglobin 33.8 Concent Red Cell Distribution Width 12.0 Platelet Count 205 Mean Platelet Volume 7.8 Neutrophils (%) (Auto) Lymphocytes (%) (Auto) Monocytes (%) (Auto) Eosinophils (%) (Auto) Basophils (%) (Auto) Neutrophils # (Auto) Lymphocytes # (Auto) Monocytes # (Auto) Eosinophils # (Auto) Basophils # (Auto) CBC Comment AUTO DIFF Differential Total Cells 100 Counted Neutrophils % (Manual) 18 Band Neutrophils % 7 Lymphocytes % 64 Monocytes % 11 Neutrophils # (Manual) 1.6 Differential Comment FINAL DIFF MANUAL Atypical Lymphocytes Platelet Estimate NORMAL Platelet Morphology Comment NORMAL Red Cell Morphology Comment NORMAL Sodium Level 133 Potassium Level 3.5 Chloride Level 99 Carbon Dioxide Level 23.2 Anion Gap 11 Blood Urea Nitrogen 8 Creatinine 0.91 Estimat Glomerular Filtration 72 Rate Random Glucose 100 Lactic Acid Level 1.3 Calcium Level 8.6 Total Bilirubin 0.3 Aspartate Amino Transf 16 (AST/SGOT) Alanine Aminotransferase 19 (ALT/SGPT) Alkaline Phosphatase 83 Total Protein 7.4 Albumin 3.0 Clue Cells (Wet Prep) PRESENT Vaginal Trichomonas (Wet Prep) NONE SEEN Vaginal Yeast (Wet Prep) NONE SEEN Chlamydia trachomatis DNA NOT DETECTED (PCR) Neisseria gonorrhoeae DNA NOT DETECTED (PCR) Urine Color YELLOW Urine Turbidity CLEAR Urine pH 6.0 Urine Specific [place] 1.023 Urine Protein TRACE Urine Glucose (UA) NEG Urine Ketones 15 Urine Occult Blood MOD Urine Nitrite NEG Urine Bilirubin NEG Urine Leukocyte Esterase TRACE Urine WBC 9-14 Urine Squamous Epithelial > 8 Cells Urine Bacteria FEW Microscopic Urinalysis Comment CULTURE INDICATED Stool C. difficile Toxin (PCR) NEGATIVE Stl C. difficile Toxin PRESUMPTIVE Epiderm 027 NEGATIVE Test 11/15/16 11/15/16 03:10 04:47 Lactic Acid Level 0.9 White Blood Count 8.6 Red Blood Count 3.46 Hemoglobin 10.6 Hematocrit 31.7 Mean Corpuscular Volume 91.6 Mean Corpuscular Hemoglobin 30.6 Mean Corpuscular Hemoglobin 33.4 Concent Red Cell Distribution Width 12.9 Platelet Count 173 Mean Platelet Volume 7.5 Neutrophils (%) (Auto) 86.5 Lymphocytes (%) (Auto) 5.3 Monocytes (%) (Auto) 8.0 Eosinophils (%) (Auto) 0.1 Basophils (%) (Auto) 0.1 Neutrophils # (Auto) 7.4 Lymphocytes # (Auto) 0.5 Monocytes # (Auto) 0.7 Eosinophils # (Auto) 0.0 Basophils # (Auto) 0.0 CBC Comment AUTO DIFF Differential Total Cells 100 Counted Neutrophils % (Manual) 43 Band Neutrophils % 36 Lymphocytes % 10 Monocytes % 9 Neutrophils # (Manual) 7.0 Metamyelocytes 2 Differential Comment FINAL DIFF MANUAL Platelet Estimate NORMAL Platelet Morphology Comment NORMAL Sodium Level 142 Potassium Level 3.5 Chloride Level 111 Carbon Dioxide Level 19.4 Anion Gap 12 Blood Urea Nitrogen 4 Creatinine 0.54 Estimat Glomerular Filtration 131 Rate Random Glucose 104 Calcium Level 6.9 Protein Corrected Calcium 7.8 Total Bilirubin 0.3 Aspartate Amino Transf 13 (AST/SGOT) Alanine Aminotransferase 15 (ALT/SGPT) Alkaline Phosphatase 60 Total Protein 5.3 Albumin 2.1 Date/Time Procedure Status Source Growth 11/14/16 18:20 Stool Pus (CORNELIUS) - Final Complete Stool Stool FEW WBC'S 11/14/16 18:20 Rotavirus Antigen - Final Complete Stool Stool NEGATIVE - ROTAVIRUS ANTIGEN IS ABSEN... 11/14/16 18:20 Received Stool Stool Pending 11/14/16 16:35 Urine Culture Received Urine Clean Catch Pending 11/14/16 15:05 Influenza Types A,B Antigen (CORNELIUS) - Final Complete Nasal Aspirate NEGATIVE FOR FLU A AND B ANTIGEN.... 11/14/16 14:45 Aerobic Blood Culture - Preliminary Resulted Blood Peripheral NO GROWTH IN 1 DAY 11/14/16 14:45 Anaerobic Blood Culture - Preliminary Resulted Blood Peripheral NO GROWTH IN 1 DAY Result Diagram: 11/15/167 11/15/167 Imaging Last Impressions Chest X-Ray 11/14/16 1533 Signed Impressions: Service Date/Time: Monday, November 14, 2016 15:35 - CONCLUSION: No acute disease. Gigi Brownlee MD Abdomen/Pelvis CT 11/14/16 1500 Signed Impressions: Service Date/Time: Monday, November 14, 2016 16:58 - CONCLUSION: Abnormal appearance to the right colon with diffuse wall thickening and some free fluid the paracolic gutter. This suggests possible colitis. Henrique Batres MD Septic Shock Reassessment Heart: Regular rate and rhythm Lungs: Clear Skin: Warm, Dry Assessment and Plan Assessment and Plan 31-year-old female with: Septic shock: MAXIMUM TEMPERATURE of 102.9 in the hospital. Heart rate 130 on arrival. Source of infection colitis. BP in the 70's early this morning despite 4L of IVF. Patient was started on SoluCortef injections at 0100 and another bolus of fluid was given at 0300. BP now improved to 90/62 at time of exam with MAP intact at 74. Patient appears well. Lactic acid normal. -Continue Solu-Cortef injections for now. -Continue IV NS @ 100 mL/hr. -Continue antibiotics as below -Blood cultures no growth to date -UA appears contaminated but culture is pending. -Telemetry, vitals Colitis: Improved. Right lower quadrant pain, nausea vomiting, diarrhea. Patient states she has not had any further nausea or vomiting and only has mild diarrhea compared to before. WBC count normal. Stool with few WBCs. CT abdomen with abnormal appearance to the right colon with diffuse wall thickening and some free fluid in the paracolic gutter. Negative C.diff. Patient underwent pelvic exam in the ED which yielded clue cells but she denies any vaginal discharge and is already on Flagyl. -Continue Cipro and Flagyl IV -IVF as above -Patient is hungry, advance to BRAT diet. -Zofran prn nausea -Tylenol prn pain and fever -Follow labs DVT prophylaxis: Lovenox sq, SCDs. Written by Jing Torres PA-C acting as scribe for Dr. Hugo on 11/15/16 at 1055. This note was transcribed by scribe Jing Torres PA-C. I, Dr. Chi Hugo personally performed the history, physical exam, and medical decision making; and confirmed the accuracy of the information in the transcribed note. Authenticated by Dr. Chi Hugo on 11/15/16 at 12:13. Discussed Condition With patient Physician Certification 2 Midnight Certification Type: Admission for Inpatient Services Order for Inpatient Services The services are ordered in accordance with Medicare regulations or non- Medicare payer requirements, as applicable. In the case of services not specified as inpatient-only, they are appropriately provided as inpatient services in accordance with the 2-midnight benchmark. Estimated LOS (days): 2 days is the estimated time the patient will need to remain in the hospital, assuming treatment plan goals are met and no additional complications. Post-Hospital Plan: Aguilar Jing Torres Nov 15, 2016 11:18 Chi Hugo MD Nov 15, 2016 12:13
[2016-11-15] MEDS ORDERED: ENOXAPARIN SODIUM 40 MG/0.4 ML SYRINGE SQ SCH (13:00)
[2016-11-15] MEDS: SODIUM CHLOR 0.9% 1000 ML INJ 1,000 ML IV SCH ×2 (16:30→20:18)
--- NOTE | 2016-11-15 16:52 | PD.CONS ---
HPI History of Present Illness This is a 31 year old [woman] who came to the hospital with severe abdominal pain, fevers, and diarrhea. Her abdominal pain started sunday and she came to ER and was discharged with pain meds. Her WBC was 12.3 at that time. She subsequently started having fevers as high as 103.7 and persistent abdominal pain as well as onset diarrhea and nausea and vomiting. Johan and yesterday she had nearly 15 bouts of diarrhea. She admits 1 x maroon stool but none prior or subsequently. Her stool tested pos for salmonella. She has been getting antibiotics. Her nausea and vomiting has improved and she had toast this morning, is asking for more food. She has only had 2 BM today and her pain is down to 5/10. She denies new medication, travel, recent abx use. She says she ordered a mail delivery meal and prepared and ate it sunday, the delivery did include raw chicken and vegetables. (Dayana Zee) PFSH Past Medical History ADD Ovarian cyst Migraines, currently controlled IUD present Past Surgical History Breast augmentation (Dayana Zee) Coded Allergies: Shellfish (Verified Allergy, Severe, 11/14/16) PEANUTS (Verified Allergy, Intermediate, 11/14/16) Uncoded Allergies: fish (Allergy, Severe, swelling, 05/10/15) Medications Current Medications Medications (Trade) Dose Ordered Sig/Raman Route PRN Reason Start Time Stop Time Status Last Admin Dose Admin Sodium Chloride (NS 1000 ml Inj) 1,000 ml @ 100 mls/hr Q10H IV 11/14/16 19:42 11/14/16 22:48 Sodium Chloride (NS Flush) 2 ml UNSCH PRN IV FLUSH FLUSH AFTER USING IV ACCESS 11/14/16 19:45 Sodium Chloride (NS Flush) 2 ml BID IV FLUSH 11/14/16 21:00 11/15/16 11:16 Ondansetron HCl (Zofran Inj) 4 mg Q6H PRN IVP NAUSEA OR VOMITING 11/14/16 19:45 Metoclopramide HCl (Reglan Inj) 5 mg Q6H PRN IV PUSH NAUSEA OR VOMITING 11/14/16 19:45 Naloxone HCl 0.4 mg 0.4 mg UNSCH PRN IV SEE LABEL COMMENTS 11/14/16 19:45 Ciprofloxacin/ Dextrose 200 ml @ 200 mls/hr Q12H IV 11/14/16 23:00 11/15/16 11:10 Metronidazole (Flagyl 500 Mg Inj) 100 ml @ 100 mls/hr Q6HR IV 11/15/16 00:00 11/15/16 12:00 Al Hydrox/Mg Hydrox/Simethicone (Mag-Al Plus Susp Liq) 30 ml Q6H PRN PO DYSPEPSIA 11/14/16 22:15 Calcium Carbonate (Tums Chew) 1,000 mg TID PRN CHEW DYSPEPSIA 11/14/16 22:15 Acetaminophen (Tylenol) 650 mg Q4H PRN PO fever >101, pain 11/15/16 01:00 11/15/16 13:03 Hydrocortisone Sodium Succinate (SoluCORTEF INJ) 100 mg Q8HR IV PUSH 11/15/16 06:00 11/15/16 13:13 Enoxaparin Sodium (Lovenox Inj) 40 mg Q24H SQ 11/15/16 13:00 11/15/16 13:13 Family History Patient states there is a strong history of colon cancer on her grandfather's side of the family. She states his 2 sisters of colon cancer, diagnosed at age 25 and 28. Breast cancer. Heart disease. Social History Rare ETOH use. Denies cigarette smoking, or illicit drug use. (Dayana Zee) Review of Systems Constitutional: COMPLAINS OF: Fever Eyes: DENIES: Blurred vision Ears, nose, mouth, throat: DENIES: Hearing loss Respiratory: DENIES: Cough Cardiovascular: DENIES: Chest pain Gastrointestinal: COMPLAINS OF: Abdominal pain, Diarrhea, Nausea, Vomiting, DENIES: Black stools, Constipation Genitourinary: DENIES: Urinary frequency Musculoskeletal: DENIES: Joint pain Integumentary: DENIES: Abnormal pigmentation Hematologic/lymphatic: DENIES: Bruising Neurologic: DENIES: Abnormal gait (Dayana Zee) GI Exam Vitals I&O Vital Signs Date Time Temp Pulse Resp B/P Pulse Ox O2 Delivery O2 Flow Rate FiO2 11/15/16 16:00 98.4 92 24 87/60 98 11/15/16 16:00 86 11/15/16 14:03 16 11/15/16 14:00 81 11/15/16 12:00 98.0 88 13 97/67 11/15/16 12:00 88 11/15/16 10:00 88 11/15/16 08:00 97.8 86 18 85/65 97 11/15/16 06:07 93 11/15/16 04:06 100 11/15/16 04:00 100 14 80/57 11/15/16 02:24 110 19 77/57 11/15/16 02:23 112 24 75/48 11/15/16 02:00 99.9 116 20 91 11/15/16 02:00 116 11/15/16 00:02 122 23 85/54 11/15/16 00:00 122 11/15/16 00:00 102.0 122 17 88/58 99 11/14/16 23:00 126 26 99/64 11/14/16 22:25 98 Nasal Cannula 2.00 11/14/16 22:22 100.0 122 13 107/67 98 11/14/16 22:20 124 11/14/16 22:00 98.3 118 20 108/75 98 Nasal Cannula 2 11/14/16 21:30 118 20 106/72 11/14/16 21:00 80 20 97/60 96 Nasal Cannula 2 11/14/16 20:39 104 20 96/57 96 Nasal Cannula 2 11/14/16 20:05 20 11/14/16 20:00 98.0 104 24 86/57 95 Nasal Cannula 2 11/14/16 19:00 98.3 99 20 93/60 100 Room Air 11/14/16 18:15 98.0 96 14 93/63 99 Room Air 11/14/16 16:40 101.9 102 14 88/57 100 I/O 11/14/16 11/14/16 11/14/16 11/15/16 11/15/16 11/15/16 07:00 15:00 23:00 07:00 15:00 23:00 Intake Total 7800 ml 2137 ml 1515 ml Output Total 800 ml Balance 7800 ml 2137 ml 715 ml Intake Oral 420 ml 315 ml IV Total 7800 ml 1717 ml 1200 ml Output Urine Total 800 ml # Voids 7 1 3 # Bowel Movements 10 1 Imaging Last Impressions Chest X-Ray 11/14/16 1533 Signed Impressions: Service Date/Time: Monday, November 14, 2016 15:35 - CONCLUSION: No acute disease. Gigi Brownlee MD Abdomen/Pelvis CT 11/14/16 1500 Signed Impressions: Service Date/Time: Monday, November 14, 2016 16:58 - CONCLUSION: Abnormal appearance to the right colon with diffuse wall thickening and some free fluid the paracolic gutter. This suggests possible colitis. Henrique Batres MD Laboratory Test 11/14/16 11/15/16 11/15/16 18:20 03:10 04:47 Stool C. difficile Toxin (PCR) NEGATIVE Stl C. difficile Toxin PRESUMPTIVE Epiderm 027 NEGATIVE Lactic Acid Level 0.9 mmol/L White Blood Count 8.6 TH/MM3 Red Blood Count 3.46 MIL/MM3 Hemoglobin 10.6 GM/DL Hematocrit 31.7 % Mean Corpuscular Volume 91.6 FL Mean Corpuscular Hemoglobin 30.6 PG Mean Corpuscular Hemoglobin 33.4 % Concent Red Cell Distribution Width 12.9 % Platelet Count 173 TH/MM3 Mean Platelet Volume 7.5 FL Neutrophils (%) (Auto) 86.5 % Lymphocytes (%) (Auto) 5.3 % Monocytes (%) (Auto) 8.0 % Eosinophils (%) (Auto) 0.1 % Basophils (%) (Auto) 0.1 % Neutrophils # (Auto) 7.4 TH/MM3 Lymphocytes # (Auto) 0.5 TH/MM3 Monocytes # (Auto) 0.7 TH/MM3 Eosinophils # (Auto) 0.0 TH/MM3 Basophils # (Auto) 0.0 TH/MM3 CBC Comment AUTO DIFF Differential Total Cells 100 Counted Neutrophils % (Manual) 43 % Band Neutrophils % 36 % Lymphocytes % 10 % Monocytes % 9 % Neutrophils # (Manual) 7.0 TH/MM3 Metamyelocytes 2 % Differential Comment FINAL DIFF MANUAL Platelet Estimate NORMAL Platelet Morphology Comment NORMAL Sodium Level 142 MEQ/L Potassium Level 3.5 MEQ/L Chloride Level 111 MEQ/L Carbon Dioxide Level 19.4 MEQ/L Anion Gap 12 MEQ/L Blood Urea Nitrogen 4 MG/DL Creatinine 0.54 MG/DL Estimat Glomerular Filtration 131 ML/MIN Rate Random Glucose 104 MG/DL Calcium Level 6.9 MG/DL Protein Corrected Calcium 7.8 MG/DL Total Bilirubin 0.3 MG/DL Aspartate Amino Transf 13 U/L (AST/SGOT) Alanine Aminotransferase 15 U/L (ALT/SGPT) Alkaline Phosphatase 60 U/L Total Protein 5.3 GM/DL Albumin 2.1 GM/DL Date/Time Procedure Status Source Growth 11/14/16 18:20 Stool Pus (CORNELIUS) - Final Complete Stool Stool FEW WBC'S 11/14/16 18:20 Rotavirus Antigen - Final Complete Stool Stool NEGATIVE - ROTAVIRUS ANTIGEN IS ABSEN... 11/14/16 18:20 - Final Complete Stool Stool Salmonella Species 11/14/16 16:35 Urine Culture - Preliminary Resulted Urine Clean Catch IMMATURE GROWTH - REINCUBATE 11/14/16 15:05 Influenza Types A,B Antigen (CORNELIUS) - Final Complete Nasal Aspirate NEGATIVE FOR FLU A AND B ANTIGEN.... 11/14/16 14:45 Aerobic Blood Culture - Preliminary Resulted Blood Peripheral NO GROWTH IN 1 DAY 11/14/16 14:45 Anaerobic Blood Culture - Preliminary Resulted Blood Peripheral NO GROWTH IN 1 DAY Physical Examination HEENT: EOMI; normocephalic; atraumatic; no jaundice. NECK: Neck is supple CHEST: Chest is clear to auscultation and percussion. CARDIAC: Regular rate and rhythm with no murmur gallop or rubs. ABDOMEN: Soft, nondistended, mild RLQ TTP, no hepatosplenomegaly; bowel sounds are present in all four quadrants. EXTREMITIES: No clubbing, cyanosis, or edema. SKIN: Normal; no rash; no jaundice. APPOINTMENT CLERK: No focal deficits; alert and oriented times three. (Dayana Zee) Assessment and Plan Plan ASSESSMENT: - diarrhea with n/v, abdominal pain - stool pos for salmonella. CT abd 11/14/16 ---> Abnormal appearance to the right colon with diffuse wall thickening and some free fluid the paracolic gutter. This suggests possible colitis. - anemia 10.6 today down from 13.4 yesterday. Possibly due to IV fluids. Pt admits 1 maroon stool. Nothing prior or since, no sign of active bleeding. PLAN: - MARGIE - supportive care - continue abx - probiotic - monitor HH This pt was seen by myself and Dr. Cortes and this note was written on his behalf (Dayana Zee) Physician Comments Seen and examined with LILO, salmonella enteritis, possibly from poultry. She also works in a animal hospital. Dc flagyl. Continue cipro bid for 05 to 07 days. Diet as tolerated. Can dc home by tomorrow if doing well. Thank you ( Tho Cortes MD) Dayana Zee Nov 15, 2016 16:52 Tho Cortes MD Nov 15, 2016 18:07
[2016-11-15] MEDS ORDERED: LACTOBACILLUS ACIDOPHILUS TAB PO SCH (21:00)
== END 2016-11-15 20:53 | disposition left against medical advice (07) | DRG 871 ==
LOC: PHED 13:18 → PHEDA 19:45 → PHICU 22:30
PROVIDERS: ADMIT Family Medicine; ATTEND Family Medicine
DX: A41.9 Sepsis, unspecified organism (principal); R65.21 Severe sepsis with septic shock; A02.0 Salmonella enteritis; E86.0 Dehydration; G43.909 Migraine, unspecified, not intractable, without status migrainosus; D64.9 Anemia, unspecified; Z97.5 Presence of (intrauterine) contraceptive device
CPT/HCPCS: 71010; 74177; 80053; 81001; 83605; 83690; 84703; 85007; 85025; 85027; 85610; 87040; 87086; 87205; 87210; 87425; 87491; 87493; 87506; 87591; 87804; 96361; 96365; 96366; 96367; 96372; 96375; J0500; J0744; J1650; J1720; J2270; J2405; J2543; J3370; J7030; J7050; Q9967

== ENCOUNTER 2017-01-01 05:09 | Emergency (ER) | payer SELFPAY ==
[~2017-01-01] VITALS: Ht 172.7 cm; Wt 61.7 kg
[~2017-01-01 05:09] MED LIST changes: +AMBI5TAB PO; +BUPR100CR PO
[2017-01-01 05:15] VITALS: BP 115/88; PULSE 86; RESP 14; TEMP 97.7; O2SAT 100
[2017-01-01] MEDS ORDERED: WELLTAB39 PO (05:21)
--- NOTE | 2017-01-01 05:22 | PD ---
HPI Chief Complaint: Oral / Dental Pain or Problem Time Seen by Provider: 05:19 Travel History International Travel<30 days: No Contact w/Intl Traveler<30days: No Traveled to known affect area: No History of Present Illness HPI 31-year-old female here for evaluation of dental pain. The patient woke up this morning with severe left upper/posterior dental pain. She noticed that the tooth is cracked, and part of it is missing. She is not sure where the other half of the tooth is. Pain is severe, constant. No respiratory difficulty. She has noted some swelling and pain to her hard palate on the left side as well. PFSH Past Medical History Hx Anticoagulant Therapy: No ADD: Yes ADHD: Yes Cancer: No Cardiovascular Problems: No Diabetes: No Diminished Hearing: No Endocrine: No Genitourinary: No Immune Disorder: No Musculoskeletal: No Psychiatric: No Reproductive: No Respiratory: No Immunizations Current: Yes Migraines: Yes (SINUS MIGRAINE, HAD MEDICAL BOTOX JANUARY/MAY 2013) : 2 Para: 2 Past Surgical History Body Medical Devices: IUD x 8 yrs Gynecologic Surgery: Yes (IUD) Other Surgery: Yes (HERNIA REPAIR, bilateral breast augmentation x 2) Social History Alcohol Use: No Tobacco Use: No Substance Use: No Allergies-Medications (Allergen,Severity, Reaction): Coded Allergies: Shellfish (Verified Allergy, Severe, 01/01/17) PEANUTS (Verified Allergy, Intermediate, 01/01/17) Uncoded Allergies: fish (Allergy, Severe, swelling, 05/10/15) Reported Meds & Prescriptions Reported Meds & Active Scripts Active Lortab (Hydrocodone-Acetaminophen) 5-325 Mg Tab 1 Tab PO Q6H PRN Penicillin V Potassium 500 Mg Tab 500 Mg PO Q8H 7 Days Reported Wellbutrin Xl 24 HR (Bupropion HCl) 300 Mg Tab 300 Mg PO HS Adderall (Amphetamine-Dextroamphetamine) 20 Mg Tab 20 Mg PO DAILY Avoid late evening doses. Space doses at least 4 to 6 hours if more than once/day dosing. Review of Systems Except as stated in HPI: all other systems reviewed are Neg Physical Exam Narrative GENERAL: Well-developed, well-nourished, comfortable, no acute distress. HEAD: Atraumatic. Normocephalic. ENT: Left upper/most posterior molar with about 50% missing with nerve root exposed, no bleeding. This tooth is very sensitive. Left hard palate with mild edema. No fluctuance. No purulent drainage. No tongue or lip swelling. No drooling or stridor. CARDIOVASCULAR: Regular rate and rhythm. RESPIRATORY: No accessory muscle use. Clear to auscultation. Breath sounds equal bilaterally. PSYCHIATRIC: Appropriate mood and affect; insight and judgment normal. Data Data Last Documented VS Vital Signs Date Time Temp Pulse Resp B/P Pulse Ox O2 Delivery O2 Flow Rate FiO2 01/01/17 05:15 97.7 86 14 115/88 100 Orders Penicillin V Potassium (Veetids) (01/01/17 05:30) Lidocai-Epi 1%-1:100,000 Inj (Xylocaine- (01/01/17 05:30) MDM Medical Decision Making Medical Screen Exam Complete: Yes Emergency Medical Condition: Yes Differential Diagnosis Dental pain, dental caries, dental infection, fractured tooth Narrative Course Patient is here with a fractured left upper posterior molar and dental pain. No signs of infection. No active bleeding. Left greater palatine nerve block performed with moderate relief of pain. Patient will be discharged home with pain medication and will be started on Pen-Vee K. She will look for a dentist to follow-up with today. She was informed on when to return to the emergency department. She verbalizes understanding and agreement with plan. Procedures Procedure Narrative Left greater palatine nerve block: 0.5 cc of 1% lidocaine with epinephrine was injected in the area of the left greater palatine nerve. Patient experienced moderate relief of pain. No complications. Tolerated well. Diagnosis Primary Impression: Dental implant pain Qualified Code: T85.848A - Dental implant pain, initial encounter Additional Impression: Tooth fracture Qualified Code: S02.5XXA - Closed fracture of tooth, initial encounter Referrals: Dentist 3 days Additional Instructions: Follow-up with a dentist this week. Return to the emergency department for worsening symptoms or any other concerns. Scripts Hydrocodone-Acetaminophen (Lortab)5-325 Mg Tab1 Tab PO Q6H PRN (PAIN) #12 TAB Ref 0 Prov:Albert Hunt MD 01/01/17 Penicillin V Potassium 500 Mg [id number] Mg PO Q8H 7 Days Ref 0 Prov:Albert Hunt MD 01/01/17 Disposition: 01 DISCHARGE HOME Condition: Stable Albert Hunt MD Jan 01, 2017 05:22
[2017-01-01] MEDS ORDERED: PENI500T PO (05:25)
[2017-01-01] MEDS ORDERED: HYDR-3533 PO (05:25)
[2017-01-01] MEDS ORDERED: PENICILLIN V POTASSIUM 500 MG TAB PO ONE (05:30)
[2017-01-01] MEDS ORDERED: LIDOCAINE 1%/EPINEPHrine 1:100,000 SOLN 30 ML VIAL INFIL ONE (05:30)
[2017-01-01] MEDS ORDERED: LIDOCAINE 1%/EPINEPHrine 1:100,000 SOLN 20 ML VIAL INFIL ONE (05:30)
== END 2017-01-01 05:47 | disposition home or self-care (01) ==
LOC: PHED 05:20
DX: T85.848A Pain due to other internal prosthetic devices, implants and grafts, initial encounter (principal); S02.5XXA Fracture of tooth (traumatic), initial encounter for closed fracture
CPT/HCPCS: 64400